=== PATIENT | male | born 1980 | race Caucasian/White ===

== ENCOUNTER 2016-12-07 02:04 | Emergency (ER) | payer MEDICAID ==
[~2016-12-07] VITALS: Ht 177.8 cm; Wt 90.7 kg
[~2016-12-07 02:04] MED LIST: AMOXICILLIN 50500 MG PO; AMOXIL500 MG PO; HYDROCODONE1 TABLET PO; KEFLEX 500MG.500 MG PO; LORTAB 5/500 501 TAB PO; NOMEDS *; NORCO 325 MG-51 TAB PO; PERCOCET 5/3251 EACH PO; PHENERGAN 25MG.25 M1 PO; VIBRAMYCIN 100100 MG PO; ZANTAC150 MG PO
--- NOTE | 2016-12-07 02:14 | Emergency Room Report ---
History of Present Illness Time Seen by MD Olivares Presenting Problem in Triage Pt arrived:Walked Presenting Problem:PT RPTS HE WAS TRYING TO CRUSH ICE INTO A GATORAID BOTTLE WHEN HE HIT HIS RIGHT HAND ON THE GATORAID BOTTLE. 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 N Clinical Suspician of Infection? N Mental Status: 1 - Regular (Normal Baseline) Sepsis Risk:Low Sepsis Risk Have you (or family members/close friends) recently traveled outside the [place]? N If Yes, where/when: Have you had exposure to infectious disease within the past month? N TB? Other? Specify: Comment The patient states that 1 hour ago he was trying to punch some ice into a Gatorade bottle causing an injury to his RIGHT hand. He complains of pain in the fourth and fifth metacarpal area going into his fourth and fifth digits. He says he has a history of crushing his RIGHT hand in about 2003. Says it did not heal RIGHT. He complains of nausea and he feels hot. ALLERGIES Coded Allergies: No Known Allergies (12/07/16) Home Medications Reported Medications No Known Home Medications History Medical History General CAD? No Angina: Yes OH: No Hypertension? No Hyperlipidemia? No CHF? No COPD? No Asthma? Yes Anemia? No Hernia? No Thyroid Problems? No Hypothyroidism? No CVA? No Seizures? No Diabetes? No End Stage Renal Disease? No UTI? No Stones? No GB Disease: No Nephritic Syndrome? No Asplenia? No Hepatitis? No Sickle Cell Disease? No Arthritis? No Cataracts? No Glaucoma? No MRSA? No TB? No Cancer? No Immunization Hx DT/Tetanus < 1 YR AGO Surgical Hx Previous Surgery?N Social History Smoking Hx Smoker: Current Every Day Smoker Tobacco: Yes Type Cigarettes Packs/day 1 1/2 - 2 Packs Alcohol Alcohol: Yes Review of Systems All Other Systems Reviewed and Negative Musculoskeletal see HPI Psychiatric/Neurological tingling Physical Exam Vital Signs Vital Signs Date Time Temp Pulse Resp B/P Pulse O2 O2 Flow FiO2 Ox Delivery Rate 12/07 0209 98.4 97 18 150/87 99 General Appearance normal appearance Respiratory Status No: respiratory distress. Cardiovascular regular rate/rhythm, normal peripheral pulses Extremities tenderness of the distal fourth and fifth metacarpals RIGHT hand. No edema. No ecchymosis. Skin intact. Decreased range of motion of fourth and fifth digits due to pain. Normal capillary refill, warmth, sensation. Neurologic alert, no motor/sensory deficits Medical Decision Making LABS/Meds/Orders Pt receiving controlled substance in ED? No Jose was queried for this patient? Yes Reference #: [id number] Comment 0 rxs. Results/Orders Current Medication Orders Sig/David Start time Last Medication Dose Route Stop Time Status Admin Ibuprofen 800 MG ONCE ONE 12/07 244 AC PO 12/07 245 Ondansetron HCl 4 MG ONCE ONE 12/07 229 DC 12/07 PO 12/07 230 0225 Ondansetron HCl 0 .STK-MED ONE 12/08 219 DC .ROUTE Orders Procedure Date/time Status STABILIZE JOINT 12/07 232 Active HAND-RT 3 VIEWS 12/08 215 Active XRAY/CT/US XRAY/CT/US XRAY hand Comment X-ray interpreted by Eric Centeno M.D.: old, healed fracture distal fifth metacarpal. No acute fracture or dislocation seen. Departure Departure Disposition DC Home or Self Care(routine) Clinical Impression Primary Impression: Contusion of right hand Qualifiers: Encounter type: initial encounter Qualified Code: S60.221A - Contusion of right hand, initial encounter Condition STABLE Referrals Luisito Simpson MD Call for appointment Patient Instructions DI for Hand Injury, How to Apply an Bam Wrap, How To Perform RICE (Rest, Ice, Compress, Elevate) Additional Instructions Additional instructions for EXTREMITY PAIN: See your physician as soon as possible for further evaluation. Return to an emergency department immediately if you have uncontrollable pain, loss of feeling or inability to move your injured extremity. Prescriptions Current Visit Scripts No Known Home Medications ED Critical Care Critical Care No at 0233
[2016-12-07 02:40] VITALS: BP 150/87
--- NOTE | 2016-12-08 05:52 | RADIOLOGY REPORT PS360 ---
HAND-RT 3 VIEWS HISTORY: Posttraumatic pain PAIN ORDERING PHYSICIAN: Eric Centeno MD PATIENT AGE: 36 years COMPARISON: 05/28/2011 FINDINGS: There is an old healed fracture of the distal aspect of the fifth metacarpal. No acute fracture or dislocation. No lytic or blastic change The joint spaces are well-preserved. No significant degenerative/arthritic changes. No erosive changes evident. IMPRESSION: Old fifth metacarpal fracture otherwise negative
== END 2016-12-07 02:42 | disposition home or self-care (01) ==
LOC: ER 02:04
DX: S60.221A Contusion of right hand, initial encounter (principal)

== ENCOUNTER 2017-03-25 17:49 | Emergency (ER) | payer MEDICAID ==
[~2017-03-25] VITALS: Ht 177.8 cm; Wt 85.3 kg
[2017-03-25 17:54] VITALS: BP 125/73
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
--- OUTSIDE RECORDS SUMMARY | 2017-03-25 18:27 | External Medical Summary Rpt ---
Author Author ALIZA Zhong, ALIZA Zhong Organization [employer] Address Unknown Phone Unavailable
--- OUTSIDE RECORDS SUMMARY | 2017-03-25 18:27 | External Medical Summary Rpt ---
Demographics Preferred Language Polish Marital Status Unknown Jain Affiliation Unknown Race Unknown Ethnic Group Unknown Author Author JERONIMO Address Unknown Phone Immunization No patient found.
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
--- OUTSIDE RECORDS SUMMARY | 2017-03-25 18:27 | External Medical Summary Rpt ---
Demographics Preferred Language Belarusian Marital Status Unknown Confucianism Affiliation Unknown Race Unknown Ethnic Group Unknown Author Author JERONIMO Address Unknown Phone Immunization No patient found.
== END 2017-03-25 18:50 | disposition left against medical advice (07) ==
LOC: ER 17:49
DX: Z53.29 Procedure and treatment not carried out because of patient's decision for other reasons (principal)